=== PATIENT | male | born 1995 | race Two or more races ===

== ENCOUNTER 2020-03-12 11:31 | Emergency (ER) | payer MEDICAID ==
[~2020-03-12] VITALS: Ht 167.6 cm; Wt 75.0 kg
[~2020-03-12 11:31] MED LIST: FLO0.4C PO; ZOF4T PO
[2020-03-12 12:10] LABS: BASOPHILS % (AUTO) 0.6 % (0-1); EOSINOPHILS # (AUTO) 0.2 X10'3 (0-0.9); EOSINOPHILS % (AUTO) 2.9 % (0-6); HEMATOCRIT 45.1 % (42.0-52.0); HEMOGLOBIN 14.7 g/dl (14.0-17.9); LYMPHOCYTES # (AUTO) 1.5 X10'3 (1.1-4.8); LYMPHOCYTES % (AUTO) 26.9 % (21-51); MEAN CORPUSCULAR HEMOGLOBIN 25.9 PG (27.0-31.0); MEAN CORPUSCULAR HGB CONC 32.7 g/dL (33.0-36.5); MEAN CORPUSCULAR VOLUME 79.3 FL (78-98); MEAN PLATELET VOLUME 7.8 FL (7.4-10.4); MONOCYTES # (AUTO) 0.4 X10'3 (0-0.9); MONOCYTES % (AUTO) 6.3 % (2-12); NEUTROPHILS # (AUTO) 3.6 X10'3 (1.8-7.7); NEUTROPHILS % (AUTO) 63.3 % (42-75); PLATELET COUNT 230 X10'3 (140-440); RED BLOOD COUNT 5.68 X10'6 (4.70-6.10); WHITE BLOOD COUNT 5.7 X10'3 (4.5-11.0)
[2020-03-12 12:25] LABS: BILIRUBIN,TOTAL 0.5 MG/DL (0.1-1.0); BLOOD UREA NITROGEN 13 MG/DL (7-18); BUN/CREATININE RATIO 14.6 (5.4-32.0); CALCIUM 9.5 MG/DL (8.5-10.1); CHLORIDE 104 MMOL/L (99-107); CREATININE 0.89 MG/DL (0.60-1.10); GLUCOSE 98 MG/DL (70-104); POTASSIUM 4.3 MMOL/L (3.5-5.1); TOTAL CARBON DIOXIDE 28.5 MMOL/L (24-32); eGFR > 90 ML/MIN
[2020-03-12 12:26] LABS: ALANINE AMINOTRANSFERASE 82 U/L (12-78); ALBUMIN 4.1 G/DL (3.4-5.0); ALBUMIN/GLOBULIN RATIO 0.9 (1.1-1.5); ALKALINE PHOSPHATASE 72 IU/L (46-116); AMYLASE 44 U/L (25-115); ANION GAP 8 (8-16); ASPARTATE AMINO TRANSFERASE 34 U/L (10-37); SODIUM 140 MMOL/L (135-145); TOTAL PROTEIN 8.5 G/DL (6.4-8.2)
[2020-03-12 12:32] LABS: LIPASE 88 U/L (73-393)
[2020-03-12 12:35] LABS: CLARITY,URINE CLEAR (Clear); COLOR,URINE STRAW (Yellow); GLUCOSE, URINE NEGATIVE (Neg); KETONES,URINE NEGATIVE (Neg); LEUKOCYTE ESTERASE ,URINE NEGATIVE (Neg); NITRITES, URINE NEGATIVE (Neg); OCCULT BLOOD,URINE NEGATIVE (Neg); PROTEIN,URINE NEGATIVE (Neg); UROBILINOGEN,URINE 0.2 E.U/dL (0.2-1.0)
[2020-03-12] MEDS ORDERED: OMEP40CA13 PO (12:35)
[2020-03-12 12:37] LABS: UA COLLECTION TYPE CLN CATCH MIDSTREAM
[2020-03-12 13:03] VITALS: BP 120/87
== END 2020-03-12 12:57 | disposition home or self-care (01) ==
LOC: ER 11:32
DX: R10.13 Epigastric pain (principal); F12.90 Cannabis use, unspecified, uncomplicated; Z79.899 Other long term (current) drug therapy
CPT/HCPCS: 36415; 80053; 81003; 82150; 83690; 85025; 99283

== ENCOUNTER 2020-04-08 11:58 | Emergency (ER) | payer MEDICAID ==
[~2020-04-08] VITALS: Ht 167.6 cm; Wt 75.0 kg
[~2020-04-08 11:58] MED LIST changes: +OMEP40CA13 PO
[2020-04-08 12:06] VITALS: BP 127/86
[2020-04-08] MEDS ORDERED: mag hydrox/Alum hydrox/simeth 30ml oral suspension PO ONE (12:45)
[2020-04-08] MEDS ORDERED: famotidine 20mg tablet PO ONE (12:45)
[2020-04-08] MEDS ORDERED: dicyclomine 10 MG capsule PO ONE (12:45)
[2020-04-08] MEDS ORDERED: DICY10CA88 PO (14:07)
[2020-04-08] MEDS ORDERED: FAMO40TA58 PO (14:07)
== END 2020-04-08 14:48 | disposition home or self-care (01) ==
LOC: ER 11:59
DX: R10.13 Epigastric pain (principal); R19.12 Hyperactive bowel sounds; Z79.899 Other long term (current) drug therapy
CPT/HCPCS: 99284

== ENCOUNTER 2020-04-10 09:56 | Emergency (ER) | payer MEDICAID ==
[~2020-04-10] VITALS: Ht 167.6 cm; Wt 80.0 kg
[~2020-04-10 09:56] MED LIST changes: +DICY10CA88 PO; +FAMO40TA58 PO
[2020-04-10 10:01] VITALS: BP 127/78
--- NOTE | 2020-04-10 10:23 | NUR ---
PATIENT RESTING COMFORTABLY IN BED. HE IS UPDATED ON POC.
[2020-04-10] MEDS ORDERED: sucralfate 1 gm tablet PO ONE (10:25)
[2020-04-10] MEDS ORDERED: LIDOcaine Viscous 15ml cup MM ONE (10:25)
[2020-04-10] MEDS ORDERED: mag hydrox/Alum hydrox/simeth 30ml oral suspension PO ONE (10:25)
[2020-04-10] MEDS ORDERED: ondansetron 4mg rapidly disintigrating tab PO ONE (10:35)
[2020-04-10 11:01] LABS: BASOPHILS # (AUTO) 0.1 X10'3 (0-0.2); BASOPHILS % (AUTO) 0.8 % (0-1); EOSINOPHILS # (AUTO) 0.3 X10'3 (0-0.9); EOSINOPHILS % (AUTO) 4.4 % (0-6); HEMATOCRIT 46.5 % (42.0-52.0); HEMOGLOBIN 15.3 g/dl (14.0-17.9); LYMPHOCYTES # (AUTO) 1.2 X10'3 (1.1-4.8); LYMPHOCYTES % (AUTO) 19.7 % (21-51); MEAN CORPUSCULAR HEMOGLOBIN 25.9 PG (27.0-31.0); MEAN CORPUSCULAR HGB CONC 32.9 g/dL (33.0-36.5); MEAN CORPUSCULAR VOLUME 78.8 FL (78-98); MONOCYTES # (AUTO) 0.4 X10'3 (0-0.9); MONOCYTES % (AUTO) 5.8 % (2-12); NEUTROPHILS # (AUTO) 4.3 X10'3 (1.8-7.7); NEUTROPHILS % (AUTO) 69.3 % (42-75); PLATELET COUNT 213 X10'3 (140-440); RED BLOOD COUNT 5.91 X10'6 (4.70-6.10); RED CELL DISTRIBUTION WIDTH 13.7 % (11.5-14.5); WHITE BLOOD COUNT 6.2 X10'3 (4.5-11.0)
[2020-04-10] MEDS ORDERED: ONDA4TAB6 PO (11:11)
[2020-04-10 11:14] LABS: ALANINE AMINOTRANSFERASE 146 U/L (12-78); ALBUMIN 4.2 G/DL (3.4-5.0); ALBUMIN/GLOBULIN RATIO 0.9 (1.1-1.5); ALKALINE PHOSPHATASE 93 IU/L (46-116); ANION GAP 6 (8-16); ASPARTATE AMINO TRANSFERASE 50 U/L (10-37); BILIRUBIN,TOTAL 0.6 MG/DL (0.1-1.0); BLOOD UREA NITROGEN 17 MG/DL (7-18); CALCIUM 9.7 MG/DL (8.5-10.1); CHLORIDE 105 MMOL/L (99-107); CREATININE 1.06 MG/DL (0.60-1.10); GLUCOSE 100 MG/DL (70-104); LIPASE 77 U/L (73-393); POTASSIUM 4.1 MMOL/L (3.5-5.1); SODIUM 141 MMOL/L (135-145); TOTAL CARBON DIOXIDE 30.2 MMOL/L (24-32); TOTAL PROTEIN 8.9 G/DL (6.4-8.2); eGFR 86 ML/MIN
== END 2020-04-10 11:39 | disposition home or self-care (01) ==
LOC: ER 09:57
DX: R10.13 Epigastric pain (principal); K21.9 Gastro-esophageal reflux disease without esophagitis; Z79.899 Other long term (current) drug therapy
CPT/HCPCS: 36415; 80053; 83690; 85025; 99283; 99284

== ENCOUNTER 2024-10-22 11:05 | Outpatient (CLI) | payer MEDICAID ==
[~2024-10-22 11:05] MED LIST changes: -FLO0.4C PO; -OMEP40CA13 PO; +ONDA4TAB6 PO; +TAMS-55 PO
--- NOTE | 2024-10-22 12:23 | RADIOLOGY REPORT ---
RENAL ULTRASOUND History: HX OF POLYCYSTIC KIDNEY DISEASE Comparison: None Technique: Multiple real-time sonographic images of the kidney and bladder were obtained in conjuncti on with Doppler imaging. Findings: The right kidney measures 11.5 cm and demonstrates no evidence of hydronephrosis, perinephric fluid c ollection, or shadowing stone. The left kidney measures 10.7 cm and demonstrates no evidence of hydronephrosis, perinephric fluid co llection, or shadowing stone. Urinary bladder: Prevoid urinary bladder volume is 254 mL. Postvoid urinary bladder volume is 14 mL . Impression: 1. No sonographic evidence for hydronephrosis.
== END 2024-10-22 23:59 | disposition home or self-care (01) ==
LOC: RAD 11:05
PROVIDERS: ATTEND Student in an Organized Health Care Education/Training Program
DX: Z87.718 Personal history of other specified (corrected) congenital malformations of genitourinary system (principal); Z82.71 Family history of polycystic kidney
CPT/HCPCS: 76770